=== PATIENT | male | born 1945 | race American Indian/Alaskan Native ===

== ENCOUNTER 2020-04-07 10:09 | Emergency (ER) | payer OTHER, MEDICARE ==
[~2020-04-07] VITALS: Ht 185.4 cm; Wt 90.7 kg
[2020-04-07 10:37] LABS: BASOPHILS ABSOLUTE AUTO 0.03 K/mm3 (0.00-0.23); BASOPHILS PERCENT AUTO 0 % (0-2); EOSINOPHILS ABSOLUTE AUTO 0.02 K/mm3 (0.00-0.68); EOSINOPHILS PERCENT AUTO 0 % (0-6); Hematocrit 41.4 % (37.0-53.0); Hemoglobin 13.8 g/dL (13.5-17.5); IMMATURE GRAN ABSOLUTE AUTO 0.08 K/mm3 (0.00-0.10); IMMATURE GRAN PERCENT AUTO 1 % (0-1); LYMPHOCYTES ABSOLUTE AUTO 0.65 K/mm3 (0.84-5.20); LYMPHOCYTES PERCENT AUTO 6 % (21-46); MONOCYTES ABSOLUTE AUTO 0.74 K/mm3 (0.16-1.47); MONOCYTES PERCENT AUTO 6 % (4-13); Mean Corpuscular HGB 30.7 pg (26.0-34.0); Mean Corpuscular HGB Conc 33.3 g/dL (31.5-36.5); Mean Corpuscular Volume 92 fL (80-100); Mean Platelet Volume 10.6 fL (9.1-12.4); NEUTROPHILS PERCENT AUTO 87 % (41-73); Platelet Count 186 K/mm3 (150-400); RDW Coefficient Variation 12.7 % (11.7-14.2); White Blood Cell Count 11.62 K/mm3 (4.00-11.30)
[2020-04-07 10:40] LABS: Albumin, Blood 3.9 g/dL (3.4-5.0); Bilirubin, Total 0.8 mg/dL (0.1-1.0); Bun/Creatinine Ratio 17.6 (12.0-20.0); Calcium, Blood 8.9 mg/dL (8.5-10.1); Creatinine, Blood 1.42 mg/dL (0.60-1.20); Globulin, Blood 3.8 g/dL (2.2-4.0); Potassium, Blood 3.7 mmol/L (3.5-5.5); Total Protein, Blood 7.7 g/dL (6.4-8.2)
[2020-04-07 11:34] LABS: Source, Urine Clean Catch
[2020-04-07 11:46] LABS: Appearance, Urine Clear (Clear); Bilirubin, Urine Neg (Neg); Blood, Urine 5+ (Neg); Color, Urine Yellow (P-Yellow); Glucose Qualitative, Urine 2+ (Neg); Ketones, Urine 3+ (Neg); Leukocyte Esterase, Urine Neg (Neg); Nitrite, Urine Neg (Neg); Protein, Urine 1+ (Neg); Specific Gravity, Urine 1.015 (1.003-1.022); Urobilinogen, Urine NORM (Normal); pH, Urine 6.5 (5.0-8.0)
[2020-04-07 11:53] LABS: Bacteria Not Seen /hpf; Squamous Epithelial Cells Not Seen /hpf (Few); White Blood Cells, Urine 0-2 /hpf (0-5)
[2020-04-07] MEDS ORDERED: Percocet 5-3251 EACH PO (12:47)
[2020-04-07] MEDS ORDERED: ONDA4ODT MM (12:47)
[2020-04-07] MEDS ORDERED: Flomax0.4 MG PO (12:47)
[2020-04-07] MEDS ORDERED: ZOCOR20 MG PO (14:07)
== END 2020-04-07 13:00 | disposition home or self-care (01) ==
LOC: ER 10:09
PROVIDERS: Physician Assistant
DX: N13.2 Hydronephrosis with renal and ureteral calculous obstruction (principal); E11.9 Type 2 diabetes mellitus without complications; Z88.8 Allergy status to other drugs, medicaments and biological substances
CPT/HCPCS: 76770; 80053; 81001; 83690; 85025; 96361; 96374; 96375; 99285-25; J1885; J2405; J3010; J7030

== ENCOUNTER 2023-03-13 06:03 | Inpatient (IN) | payer OTHER ==
[~2023-03-13] VITALS: Ht 185.4 cm; Wt 89.1 kg
[2023-03-13] VITALS (7 sets, daily range): BP systolic 153–186; BP diastolic 79–90
[~2023-03-13 06:03] MED LIST: Aspir 8181 MG PO; BASAGLAR K100 UNIT/1; Flomax0.4 MG PO; GLIP2.5ER PO; INSULIN AS100 UNIT/8; ONDA4ODT MM; Percocet 5-3251 EACH PO; Prozac20 MG PO; ZOCOR20 MG PO
--- NOTE | 2023-03-13 07:57 | NUR ---
03/13/23 0757 Lexi Amin RASH NOTED PRIOR TO STERILE PREP ON ABDOMEN TO THE LEFT OF UMBILICUS.
--- NOTE | 2023-03-13 09:50 | NUR ---
03/13/23 [id number] Meghana Marcano PTS PAIN IS NOT RESPONDING WELL TO PAIN MEDICATIONS. TRYING ICE THERAPY TO SEE IF IT HELPS. PTS PAIN IS CURRENTLY A 9/10 AFTER MEDICATING WITH FENTANYL AND DILAUDID. WILL CONTINUE TO DOSE NECESSARY.
--- NOTE | 2023-03-13 14:26 | NUR ---
Pt. is resting in his bed but responds when I enter the room and welcomes my visit. Pt. is pleasant. Facilitated a life review and established rapport. Pt. verbalized the impact of his years of service with the [employer] [employer] [facility] [place]. Listened with empathy, gratitude and a calming presence. When considering things that may be concerning him now, the Pt. verbalized grief of having lost a son and then watching his 5 yr. old grandson suffer through the remaoval and chemotherapy of a brain tumor. Pastoral care is given. While space to grieve was given, Pt. displayed evidence of strength. Prayed with Pt. Pt. verbalized gratitude for the spiritual care visit.
[2023-03-13] MEDS ORDERED: Hydrocodone-Ap1 EA26 PO (16:14)
--- NOTE | 2023-03-13 18:40 | NUR ---
SHIFT SUMMARY PT POD 0 VENTRAL HERNIA REPAIR W/MESH. INCISION SITES X'S 3 C/D/I, GAUZE TO LARGEST SITE C/D/I. PT TOLERATING PO PAIN MEDICATION WITH NO N/V. ADVANCED TO REGULAR DIET. PT VOIDING W/O DIFFICULTY. STILL HAVING INCREASED PAIN W/AMBULATION. PT WAS NOT CONFIDENT THAT HE WOULD BE ABLE TO MANAGE PAIN AT HOME AT THIS TIME SO WILL STAY UNTIL AM. DC IS COMPLETE IN PT CHART.
--- NOTE | 2023-03-14 05:34 | NUR ---
SHIFT SUMMARY NOC. PT IS NOW POST OP DAY 1 FOR VENTRAL HERNIA WITH MESH. PT'S ABDOMINAL DRESSING IS CLEAN DRY AND INTACT. PT WEARING ABDOMINAL BINDER FOR COMFORT. PT MEDICATED FOR PAIN WITH RELIEF OF SYMPTOMS. PT TOLERATING PO FLUIDS. VOIDING APPROPRIATLY VIA URINAL.
[2023-03-14 07:19] VITALS: BP 180/81
[2023-03-14 11:01] VITALS: BP 165/80
[2023-03-14 14:26] VITALS: BP 167/90
--- NOTE | 2023-03-14 17:51 | NUR ---
DISCHARGED REVIEWED DC INSTRUCTIONS W/PT; VERBALIZED UNDERSTANDING. DC'D IV, CATHETER INTACT. PT LEFT UNIT IN WC W/POSSESSIONS AND DC PAPERWORK IN HAND TO MEET SPOUSE IN RIDE WAITING OUTSIDE.
== END 2023-03-14 17:18 | disposition home or self-care (01) | DRG 355 ==
LOC: ORSCSDS 06:03 → SURS 11:59 → ORSCSDS 12:07 → SURS 12:20
PROVIDERS: ADMIT Surgery
PROC: 0WUF0JZ Supplement Abdominal Wall with Synthetic Substitute, Open Approach (ICD-10-PCS; principal; 2023-03-13 07:30)
DX: K43.2 Incisional hernia without obstruction or gangrene (principal); M19.90 Unspecified osteoarthritis, unspecified site; F32.A Depression, unspecified; N40.0 Benign prostatic hyperplasia without lower urinary tract symptoms; H91.90 Unspecified hearing loss, unspecified ear; I12.9 Hypertensive chronic kidney disease with stage 1 through stage 4 chronic kidney disease, or unspecified chronic kidney disease; N18.9 Chronic kidney disease, unspecified; I25.10 Atherosclerotic heart disease of native coronary artery without angina pectoris; E11.22 Type 2 diabetes mellitus with diabetic chronic kidney disease; E11.42 Type 2 diabetes mellitus with diabetic polyneuropathy; E11.65 Type 2 diabetes mellitus with hyperglycemia; E78.5 Hyperlipidemia, unspecified; E66.9 Obesity, unspecified; F43.10 Post-traumatic stress disorder, unspecified; G47.33 Obstructive sleep apnea (adult) (pediatric); F12.90 Cannabis use, unspecified, uncomplicated; M54.50 Low back pain, unspecified; Z86.010 Personal history of colon polyps; Z87.442 Personal history of urinary calculi; Z90.5 Acquired absence of kidney; Z98.890 Other specified postprocedural states; Z79.4 Long term (current) use of insulin; Z88.8 Allergy status to other drugs, medicaments and biological substances; Z79.84 Long term (current) use of oral hypoglycemic drugs; Z87.891 Personal history of nicotine dependence; Z68.25 Body mass index [BMI] 25.0-25.9, adult; Z95.1 Presence of aortocoronary bypass graft
CPT/HCPCS: 82947; A9270; C1781; J0690; J1100; J1170; J1885; J2270; J2405; J2704; J2795; J3010; J7120

== ENCOUNTER → 2024-11-07 | Outpatient (CLI) | payer OTHER ==
[~2024-11-07] MED LIST changes: +Hydrocodone-Ap1 EA26 PO
[2024-11-07 18:37] LABS: Creatinine Urine 43.4 mg/dL (27.00-270.00); Protein, Urine Quantitative 13.8 mg/dL (0.0-11.9)
== END ==
LOC: LAB 09:00 → LAB SHORT 09:00
PROVIDERS: Internal Medicine Nephrology
DX: N18.30 Chronic kidney disease, stage 3 unspecified (principal); D63.1 Anemia in chronic kidney disease; N25.81 Secondary hyperparathyroidism of renal origin; E55.9 Vitamin D deficiency, unspecified; E78.00 Pure hypercholesterolemia, unspecified; R76.9 Abnormal immunological finding in serum, unspecified; R94.5 Abnormal results of liver function studies; R94.6 Abnormal results of thyroid function studies; D60.9 Acquired pure red cell aplasia, unspecified; D52.8 Other folate deficiency anemias; D50.9 Iron deficiency anemia, unspecified
CPT/HCPCS: 81050; 82043; 82570; 84156